=== PATIENT | female | born 1950 | race Caucasian/White ===

== ENCOUNTER 2017-08-28 20:13 | Emergency (ER) | payer OTHER ==
[~2017-08-28] VITALS: Ht 168.9 cm; Wt 109.9 kg
[~2017-08-28 20:13] MED LIST: ALBU1AER9 INH; ANSHCCR RE; ASPEC81 PO; ATOR-24 PO; CALC600T9 PO; CHOL1CAP57 PO; FRRG PO; GLC500 PO; LSN25 PO; METO25TA56 PO; MULTTAB58 PO; NCYSR50 PO; NTRGSL/4 UT; WARF1TAB PO
[2017-08-28 20:31] VITALS: TEMP 36.5; Ht 168.9 cm; Wt 109.9 kg
[2017-08-28] MEDS ORDERED: ONDANSETRON INJ 2 MG/ML 2 ML VIAL IV STA (20:52)
[2017-08-28] MEDS ORDERED: ACETAMINOPHEN 500 MG TAB PO STA (20:56)
[2017-08-28 21:22] LABS: BASO % 0.3 %; BASO ABS # 0.02 K/uL (0-0.2); EOS % 1.8 %; EOS ABS # 0.11 K/uL (0-0.5); HEMATOCRIT 41.4 % (37-47); HEMOGLOBIN 13.6 g/dL (12.0-16.0); IG# 0.01 K/uL (0.00-0.02); LYMPH % 39.2 %; LYMPH ABS # 2.43 K/uL (1.2-3.4); MEAN CELL VOLUME 86.4 fL (80-100); MEAN CORPUSCULAR HEMOGLOBIN 28.4 pg (25-34); MEAN CORPUSCULAR HGB CONC 32.9 g/dl (32-36); MONO % 8.9 %; MONO ABS # 0.55 K/uL (0.11-0.59); NEUT % 49.6 %; NEUT ABS # 3.08 K/uL (1.4-6.5); PLATELET COUNT 226 K/uL (130-400); RED CELL DISTRIBUTION WIDTH CV 13.9 % (11.5-14.5); RED CELL DISTRIBUTION WIDTH SD 43.7 fL (36.4-46.3)
--- NOTE | 2017-08-28 21:44 | EMERGENCY ROOM VISIT NOTE ---
History Report prepared by Yeny: Kong Paredes Under the Supervision of: Dr. Yonathan Chapman M.D. First contact with patient: 20:45 Chief Complaint: PELVIC PAIN Stated Complaint: PAIN LEFT SIDE History of Present Illness The patient is a 67 year old female who presents to the Emergency Room with complaints of persistent left pelvic pain that began three weeks ago. She rates her pain as a 10/10 in severity. She describes the pain as a shooting sensation. The patient states that she was sitting three weeks ago when she developed left pelvic pain that radiated into her left leg. She reports that her leg felt numb to the touch. The patient states that she saw a PA who thought it was due to inflammation. She reports she was prescribed medication, but states she did not take the medication because her insurance did not cover it. The patient states the pain was just as severe two days later, which caused her to call to make an appointment. She reports she was sent over to [facility] where she saw PA. Colon. The patient states PA. Colon thought the pain was coming form her back and she had a back and pelvic x-ray done. She states that she was prescribed Prednisone and Tramadol, which she reports helped dull the pain. The patient states she saw orthopedics who looked at the X-rays and noted there were no problems with the hip and back. She reports orthopedics thought she had a pinched nerve and placed her on Mobic. The patient states that the pain worsened today and her pain is not relieved with medication. She reports the pain is more forward than previously. She also reports an episode of diarrhea this morning and a lack of appetite for the last 3 weeks. She denies injury, activity to aggravate the area, a history of kidney stones, and urinary symptoms. Source of History: patient Onset: 3 weeks ago Position: other (left pelvis) Symptom Intensity: 10/10 Quality: other (shooting) Timing: other (persistent) Modifying Factors (Relieving): other (Tramadol, Mobic) Associated Symptoms: + back pain, + numbness, No abdominal pain, No urinary symptoms Note: Left leg pain. Review of Systems See HPI for pertinent positives & negatives. A total of 10 systems reviewed and were otherwise negative. Past Medical & Surgical Medical Problems: (1) Asthma (2) Diabetes (3) Heart attack (4) Heart disease (5) HTN (hypertension) Surgical Problems: (1) Stented coronary artery Family History Cancer Diabetes mellitus FH: heart disease Hypertension Social History Smoking Status: Never Smoker Smokeless Tobacco Use: No Alcohol Use: none Marital Status: Housing Status: lives with significant other Occupation Status: retired Current/Historical Medications Scheduled Aspirin Enteric Coated (Ecotrin Or Generic), 81 MG PO DAILY Atorvastatin (Lipitor), 40 MG PO DAILY Cholecalciferol (Vitamin D3), 1 TAB PO DAILY Lisinopril (Zestril), 2.5 MG PO DAILY Metformin Hcl (Glucophage), 1,000 MG PO BID Metoprolol Tartrate (Lopressor) (Lopressor), 12.5 MG PO BID Multiple Vitamin (Multivitamin), 1 TAB PO DAILY Nitroglycerin (Nitrostat), 0.4 MG UT PRN Scheduled PRN Fluticasone Propionate (Nasal) (Flonase Allergy Relief), 2 SPRAYS CARLOS A DAILY PRN for Nasal Congestion Tramadol (Ultram), 50 MG PO Q6 PRN for Pain [Proair Hfa 108], 2 PUFFS INH Q4 PRN for SOB/Wheezing Allergies Coded Allergies: Clindamycin (Verified Allergy, Severe, RASH, 08/28/17) Diphenhydramine (Verified Allergy, Severe, RASH/ERYTHEMA OVER UPPER BODY, 08/28/17) Rosuvastatin (Verified Allergy, Severe, LEG CRAMPS, 08/28/17) Clarithromycin (Verified Allergy, Intermediate, RASH, 08/28/17) Sulfa Drugs (Verified Allergy, Unknown, RASH, 08/28/17) Sulfamethoxazole (Verified Allergy, Unknown, RASH, 08/28/17) Trimethoprim (Verified Allergy, Unknown, RASH, 08/28/17) Physical Exam Vital Signs Date Time Temp Pulse Resp B/P (MAP) Pulse Ox O2 Delivery O2 Flow Rate FiO2 08/29/17 00:11 61 16 151/75 92 Room Air 08/28/17 22:58 62 18 158/74 94 Room Air 08/28/17 20:31 36.5 74 22 209/102 95 Room Air Physical Exam GENERAL: Patient is in no acute distress. HEENT: No acute trauma, normocephalic atraumatic, mucous membranes moist, no nasal congestion, no scleral icterus. NECK: No stridor, no adenopathy, no meningismus, trachea is midline. LUNGS: Clear to auscultation bilaterally, no wheeze, no rhonchi, breath sounds equal. HEART: Without murmurs gallops or rubs, regular rate and rhythm. ABDOMEN: Soft, tender in the left lower quadrant, bowel sounds positive, no hernias, no peritonitis, no rash seen. BACK: No change in the pain with palpation of the lower back or with movement. EXTREMITIES: No cyanosis or edema, full range of motion of all the joints without pain or difficulty, no signs for acute trauma, movement of the left hip causes no increase in pain. NEUROLOGIC: Oriented x 3, no acute motor or sensory deficits, no focal weakness. SKIN: No rash, no jaundice, no diaphoresis. Medical Decision & Procedures ER Provider Diagnostic Interpretation: Lumbar spine CT shows some mild spinal canal stenosis at L4-L5, there was moderate bilateral neuroforaminal stenosis at L4-L5. There is mild bilateral neuroforaminal stenosis at L5-S1. Abdominal and pelvis CT does not show any acute abnormality in the abdomen or pelvis. There is no bowel obstruction or inflammation. There is a tiny fat- containing umbilical hernia. Laboratory Results 08/28/17 21:10 Red Blood Count 4.79, Mean Corpuscular Volume 86.4, Mean Corpuscular Hemoglobin 28.4, Mean Corpuscular Hemoglobin Concent 32.9, Mean Platelet Volume 9.0, Neutrophils (%) (Auto) 49.6, Lymphocytes (%) (Auto) 39.2, Monocytes (%) (Auto) 8.9, Eosinophils (%) (Auto) 1.8, Basophils (%) (Auto) 0.3, Neutrophils # (Auto) 3.08, Lymphocytes # (Auto) 2.43, Monocytes # (Auto) 0.55, Eosinophils # (Auto) 0.11, Basophils # (Auto) 0.02 08/28/17 21:10 Test 08/28/17 21:10 08/28/17 22:45 White Blood Count 6.20 K/uL (4.8-10.8) Red Blood Count 4.79 M/uL (4.2-5.4) Hemoglobin 13.6 g/dL (12.0-16.0) Hematocrit 41.4 % (37-47) Mean Corpuscular Volume 86.4 fL (80-100) Mean Corpuscular Hemoglobin 28.4 pg (25-34) Mean Corpuscular Hemoglobin Concent 32.9 g/dl (32-36) Platelet Count 226 K/uL (130-400) Mean Platelet Volume 9.0 fL (7.4-10.4) Neutrophils (%) (Auto) 49.6 % Lymphocytes (%) (Auto) 39.2 % Monocytes (%) (Auto) 8.9 % Eosinophils (%) (Auto) 1.8 % Basophils (%) (Auto) 0.3 % Neutrophils # (Auto) 3.08 K/uL (1.4-6.5) Lymphocytes # (Auto) 2.43 K/uL (1.2-3.4) Monocytes # (Auto) 0.55 K/uL (0.11-0.59) Eosinophils # (Auto) 0.11 K/uL (0-0.5) Basophils # (Auto) 0.02 K/uL (0-0.2) RDW Standard Deviation 43.7 fL (36.4-46.3) RDW Coefficient of Variation 13.9 % (11.5-14.5) Immature Granulocyte % (Auto) 0.2 % Immature Granulocyte # (Auto) 0.01 K/uL (0.00-0.02) Anion Gap 8.0 mmol/L (3-11) Est Creatinine Clear Calc Drug Dose 86.4 ml/min Estimated GFR () 88.4 Estimated GFR (Non- 76.3 BUN/Creatinine Ratio 18.6 (10-20) Calcium Level 9.0 mg/dl (8.5-10.1) Total Bilirubin 0.5 mg/dl (0.2-1) Aspartate Amino Transf (AST/SGOT) 22 U/L (15-37) Alanine Aminotransferase (ALT/SGPT) 40 U/L (12-78) Alkaline Phosphatase 65 U/L (45-117) Total Protein 6.6 gm/dl (6.4-8.2) Albumin 3.4 gm/dl (3.4-5.0) Globulin 3.2 gm/dl (2.5-4.0) Albumin/Globulin Ratio 1.1 (0.9-2) Lipase 164 U/L (73-393) Urine Color YELLOW Urine Appearance CLEAR (CLEAR) Urine pH 5.0 (4.5-7.5) Urine Specific Inman 1.008 (1.000-1.030) Urine Protein NEG (NEG) Urine Glucose (UA) NEG (NEG) Urine Ketones NEG (NEG) Urine Occult Blood NEG (NEG) Urine Nitrite NEG (NEG) Urine Bilirubin NEG (NEG) Urine Urobilinogen NEG (NEG) Urine Leukocyte Esterase MODERATE (NEG) Urine WBC (Auto) 1-5 /hpf (0-5) Urine RBC (Auto) 0-4 /hpf (0-4) Urine Hyaline Casts (Auto) 0 /lpf (0-5) Urine Epithelial Cells (Auto) >30 /lpf (0-5) Urine Bacteria (Auto) NEG (NEG) Medications Administered Medications (Trade) Dose Ordered Sig/Karyn Route Start Time Stop Time Status Last Admin Dose Admin Ondansetron HCl (Zofran Inj) 4 mg NOW STAT IV 08/28/17 20:52 08/28/17 20:56 DC 08/28/17 21:28 4 MG Acetaminophen (Tylenol Tab) 1,000 mg NOW STAT PO 08/28/17 20:56 08/28/17 20:58 DC 08/28/17 21:28 1,000 MG ED Course 2053: The patient was evaluated in room B03B. A complete history and physical exam was performed. 2051: Ordered Zofran Injection 4 mg IV. 2055: Ordered Tylenol Tab 1000 mg PO. 2229: I reevaluated the patient and updated her on her results. She will give a urine sample. I spoke with the patient, we went over the CT findings. Patient was reassured. She is being discharged home with outpatient follow-up. She has an appointment in 2 days with her doctors. Medical Decision The patient is a 67 year old female who presents to the Emergency Room with complaints of persistent left pelvic pain that began three weeks ago. Differential diagnoses considered include nerve impingement, spinal stenosis, lumbar disc disease, diverticulitis, pelvic mass, UTI, renal colic, sciatica. There is no leukocytosis or concerning anemia. No significant electrolyte abnormality, kidney failure or hepatitis. There is no pancreatitis. Urinalysis does not show infection, contamination was seen. Abdominal and pelvis CT does not show any acute surgical process in the abdomen or pelvis. No mass in the pelvis, no diverticulitis. Lumbar spine CT shows some spinal stenosis in a few areas, nothing acutely surgical noted. The patient received oral Tylenol for pain. She received IV Zofran for nausea. The patient does not want anything further for pain. She will follow with her doctors. She will either try her Mobic or increase her aspirin dosing for pain control. She was told she could also use some Tylenol. Heat to the area was suggested. If worsening, she can return. The cause for her symptoms is unclear although likely musculoskeletal. Medication Reconcilliation Current Medication List: was personally reviewed by me Blood Pressure Screening Patient's blood pressure: Elevated blood pressure Blood pressure disposition: Referred to PCP Impression Primary Impression: Left flank pain Additional Impression: LLQ abdominal pain Scribe Attestation The scribe's documentation has been prepared under my direction and personally reviewed by me in its entirety. I confirm that the note above accurately reflects all work, treatment, procedures, and medical decision making performed by me. Departure Information Dispostion Home / Self-Care Referrals Fay Ferrera M.D. (PCP) Patient Instructions My [facility] Problem Qualifiers
[2017-08-28 21:48] LABS: ALBUMIN 3.4 gm/dl (3.4-5.0); CREATININE 0.8 mg/dl (0.60-1.20); POTASSIUM 3.7 mmol/L (3.5-5.1)
[2017-08-28 21:51] LABS: TOTAL PROTEIN 6.6 gm/dl (6.4-8.2)
[2017-08-28] MEDS ORDERED: TRAM-10 PO (22:26)
[2017-08-28] MEDS ORDERED: METF-384 PO (22:26)
[2017-08-28] MEDS ORDERED: FLUT0.15 NAE (22:26)
[2017-08-28] MEDS ORDERED: ASPI-319 PO (22:26)
[2017-08-28] MEDS ORDERED: PROAIR HFA 108 INH (22:26)
[2017-08-28] MEDS ORDERED: LISI-789 PO (22:26)
[2017-08-28] MEDS ORDERED: CHOL20007 PO (22:38)
[2017-08-28] MEDS ORDERED: OPTIRAY 320 IV PRN (23:30)
[2017-08-29 01:05] VITALS: BP 151/84; PULSE 61; O2SAT 92
--- NOTE | 2017-08-29 07:16 | DIAGNOSTIC IMAGING REPORT ---
ABDOMEN AND PELVIS CT WITH IV AND ORAL CONTRAST CT DOSE: HISTORY: Left flank pain. Generalized abdominal pain. TECHNIQUE: Multiaxial CT images of the abdomen and pelvis were performed following the use of intravenous and oral contrast. A dose lowering technique was utilized adhering to the principles of ALARA. COMPARISON STUDY: None. FINDINGS: The lung bases are clear. No pneumoperitoneum. No pneumatosis. No suspicious lytic or blastic osseous lesions. Hepatic steatosis. The gallbladder, spleen, adrenal glands, pancreas, and kidneys are unremarkable. No hydronephrosis. No retroperitoneal lymphadenopathy. The uterus, adnexa, and bladder are unremarkable. Mild pelvic floor collapse. No bowel wall thickening or obstruction. IMPRESSION: 1. No bowel wall thickening or obstruction. 2. Hepatic steatosis. Electronically signed by: Jeremy Ferrer M.D. 08/29/2017 7:14 AM Dictated Date/Time: 08/29/2017 7:08 AM
--- NOTE | 2017-08-29 07:56 | DIAGNOSTIC IMAGING REPORT ---
CT SCAN OF THE LUMBAR SPINE WITHOUT IV CONTRAST CLINICAL HISTORY: Left flank pain. Left lower extremity numbness. COMPARISON STUDY: No priors. TECHNIQUE: CT scan of the lumbar spine is performed from the lower thoracic spine to the sacrum. Images were reviewed in the axial, sagittal, and coronal planes. IV contrast was not administered specifically for this examination. There is IV contrast present from the concurrently performed abdominal CT. A dose lowering technique was utilized adhering to the principles of ALARA. CT DOSE: 1364.55 mGy.cm FINDINGS: The skeletal structures are osteopenic. There is no evidence of fracture or malalignment involving the lumbar spine. Vertebral body height is maintained. There is 6 mm of anterolisthesis at L4-L5. Minimal retrolisthesis is seen at L2-L3. The transverse and spinous processes are intact. There is no evidence of spondylolysis. No lytic or blastic lesion is seen. Tiny anterior osteophytes are seen throughout. Mild facet arthropathy is noted in the lower lumbar spine. The disc spaces appear preserved. There is no evidence of large disc herniation. Minimal posterior disc bulge is seen at L2-L3, L3-L4, and L4-L5. The visualized sacrum and bony pelvis appear intact. The paraspinous soft tissues are normal in appearance. The partially imaged retroperitoneal structures are grossly unremarkable. There is mild atherosclerotic calcification of the abdominal aorta. IMPRESSION: 1. No acute bony abnormality is identified involving the lumbar spine. 2. Osteopenia and mild spondylotic change as above. Dictated: 08/29/2017 7:05 AM Transcribed: 08/29/2017 7:55 AM Reed Electronically signed by: Yonathan Paris M.D. 08/29/2017 7:59 AM Dictated Date/Time: 08/29/2017 7:05 AM
[2017-08-30] MEDS ORDERED: ALBU18002 INH (23:42)
[2017-08-30] MEDS ORDERED: DICL75TA2 PO (23:42)
== END 2017-08-29 01:06 | disposition home or self-care (01) ==
LOC: C.EDB 20:13
DX: R10.32 Left lower quadrant pain (principal); J45.909 Unspecified asthma, uncomplicated; E11.9 Type 2 diabetes mellitus without complications; I11.9 Hypertensive heart disease without heart failure; Z79.82 Long term (current) use of aspirin; Z79.899 Other long term (current) drug therapy; Z88.1 Allergy status to other antibiotic agents; Z88.2 Allergy status to sulfonamides; Z88.8 Allergy status to other drugs, medicaments and biological substances

== ENCOUNTER 2017-08-30 22:37 | Emergency (ER) | payer OTHER ==
[~2017-08-30] VITALS: Ht 167.6 cm; Wt 109.0 kg
[~2017-08-30 22:37] MED LIST changes: -ALBU1AER9 INH; -ANSHCCR RE; -ASPEC81 PO; +ASPI-319 PO; -CALC600T9 PO; -CHOL1CAP57 PO; +CHOL20007 PO; +FLUT0.15 NAE; -FRRG PO; -GLC500 PO; +LISI-789 PO; -LSN25 PO; +METF-384 PO; -NCYSR50 PO; +PROAIR HFA 108 INH; +TRAM-10 PO; -WARF1TAB PO
[2017-08-30 22:45] VITALS: TEMP 37
[2017-08-30] MEDS ORDERED: KETOROLAC TROMETHAMINE 30 MG/ML VIAL IV STA (23:20)
[2017-08-30] MEDS ORDERED: HYDROmorphone INJ 2 MG/ML SYR/VIAL IV STA (23:20)
--- NOTE | 2017-08-30 23:38 | EMERGENCY ROOM VISIT NOTE ---
History Report prepared by Yeny: Rommel Brice Under the Supervision of: Dr. Demetrice Moon D.O. First contact with patient: 22:59 Chief Complaint: BACK PAIN Stated Complaint: HIP PAIN History of Present Illness The patient is a 67 year old female who presents to the Emergency Room with complaints of worsening back pain since yesterday. She notes that she developed back pain with spasms to her middle back three weeks ago. She states that she has been getting sharp, stabbing pain in her left groin. She also reports that she developed numbness over her left leg three weeks ago. She notes that she was seen by her PCP who prescribed her Tramadol and Prednisone, for which she took for about five days and states that it did help her for about one week. She states the pain returned and she was seen in the ED for similar symptoms. She was prescribed Tylenol and Zofran at that time. She was seen again at her PCPs this morning because the pain had worsened since yesterday. She reports that she took a Tramadol at 2000 today and a Voltaren, which was also recently prescribed to her today. She describes the pain her left groin and left leg as though someone is sticking her with knives. She states it feels as though her legs are going to give out. She states that she used to be able to lay flat with relief, though now she is finding it more difficult to get comfortable. She notes the pain is worsened with movement. She denies any pain to the back of her knee. She is expected to have an MRI in two days. She denies any abdominal pain. She notes her stools have been loose. She notes intermittent chest pain that has been coming and going all day today. She has a history of DE. Source of History: patient Onset: since yesterday Position: back Quality: sharp, stabbing Timing: worsening Modifying Factors (Worsening): movement Associated Symptoms: + chest pain, + numbness (left leg), No abdominal pain Note: She notes left leg pain and left groin pain. Review of Systems See HPI for pertinent positives & negatives. A total of 10 systems reviewed and were otherwise negative. Past Medical & Surgical Medical Problems: (1) Asthma (2) Diabetes (3) Heart attack (4) Heart disease (5) HTN (hypertension) (6) Myocardial infarction (7) Right Knee DJD (8) Right Knee DJD Surgical Problems: (1) Stented coronary artery Family History Cancer Diabetes mellitus FH: heart disease Hypertension Social History Smoking Status: Never Smoker Smokeless Tobacco Use: No Alcohol Use: none Drug Use: none Marital Status: Housing Status: lives with significant other Occupation Status: retired Current/Historical Medications Scheduled Aspirin Enteric Coated (Ecotrin Or Generic), 81 MG PO DAILY Atorvastatin (Lipitor), 40 MG PO DAILY Cholecalciferol (Vitamin D3), 1 TAB PO DAILY Diclofenac Sodium (Voltaren), 75 MG PO BID Lisinopril (Zestril), 2.5 MG PO DAILY Metformin Hcl (Glucophage), 1,000 MG PO BID Metoprolol Tartrate (Lopressor) (Lopressor), 12.5 MG PO BID Multiple Vitamin (Multivitamin), 1 TAB PO DAILY Nitroglycerin (Nitrostat), 0.4 MG UT PRN Scheduled PRN Albuterol Sulfate (Proair Respiclick), 2 PUFFS INH Q4H PRN for SOB/Wheezing Fluticasone Propionate (Nasal) (Flonase Allergy Relief), 2 SPRAYS CARLOS A DAILY PRN for Nasal Congestion Oxycodone/Acetaminophen 5MG/325MG (Percocet 5MG/325MG), 1-2 TABLETS PO Q4H PRN for Pain Tramadol (Ultram), 50 MG PO Q6 PRN for Pain Allergies Coded Allergies: Clindamycin (Verified Allergy, Severe, RASH, 08/30/17) Diphenhydramine (Verified Allergy, Severe, RASH/ERYTHEMA OVER UPPER BODY, 08/30/17) Rosuvastatin (Verified Allergy, Severe, LEG CRAMPS, 08/30/17) Clarithromycin (Verified Allergy, Intermediate, RASH, 08/30/17) Sulfa Drugs (Verified Allergy, Intermediate, RASH, 08/30/17) Sulfamethoxazole (Verified Allergy, Intermediate, RASH, 08/30/17) Trimethoprim (Verified Allergy, Intermediate, RASH, 08/30/17) Physical Exam Vital Signs Date Time Temp Pulse Resp B/P (MAP) Pulse Ox O2 Delivery O2 Flow Rate FiO2 08/31/17 01:22 64 18 155/90 92 08/31/17 00:31 65 18 160/95 93 Nasal Cannula 2.0 08/30/17 22:45 60 08/30/17 22:45 37.0 60 15 181/115 95 Room Air Physical Exam GENERAL: uncomfortable-appearing with spasms of left groin and left thigh HEENT: Head - normocephalic and atraumatic Pupils are equal, round, and reactive to light. Extraocular eye muscles are intact, and sclera are anicteric. Nose - moist nasal mucosa without discharge. Mouth - moist buccal mucosa. Oropharynx is nonerythematous and there is no tonsillar exudate or edema noted. Neck: Supple; no JVD, nuchal rigidity, cervical lymphadenopathy. Heart: Regular rate and rhythm. There is a normal S1 and S2 with no murmurs, clicks, or gallops appreciated. Lungs: Clear to auscultation bilaterally with no wheezes, rales, or rhonchi. Abdomen: Soft, completely nontender, nondistended, with good bowel sounds. There are no palpable pulsatile masses or hepatosplenomegaly. There is no guarding, rigidity, or rebound noted. Extremities: No evidence of cyanosis, clubbing, or edema. There are easily palpable peripheral pulses. The patient has extreme pain with initiation of flexion at the hip. The pain seems to be concentrated in the left groin and left anterior thigh. Skin: warm and dry with good turgor and no rashes. Medical Decision & Procedures Laboratory Results Test 08/30/17 23:40 Troponin I < 0.015 ng/ml (0-0.045) Laboratory results per my review. Medications Administered Medications (Trade) Dose Ordered Sig/Karyn Route Start Time Stop Time Status Last Admin Dose Admin Hydromorphone HCl (Dilaudid Inj) 2 mg NOW STAT IV 08/30/17 23:20 08/30/17 23:22 DC 08/30/17 23:44 2 MG Ketorolac Tromethamine (Toradol Inj) 30 mg NOW STAT IV 08/30/17 23:20 08/30/17 23:22 DC 08/30/17 23:44 30 MG Procedure 2320: Ordered Toradol 30 mg IV and Dilaudid 2 mg IV 0100: Ordered Percocet 1 homepack PO ECG Per My Interpretation Indication: back/shoulder pain (back pain) Rate (beats per minute): 63 Rhythm: normal sinus Findings: nonspecific-ST abn, no acute ischemic change, no ectopy ED Course 2311: Past medical records reviewed. The patient was evaluated in room B11B. A complete history and physical exam was performed. IV lock was established. 2320: Ordered Toradol 30 mg IV and Dilaudid 2 mg IV 0005: I reassessed the patient at this time. She is feeling much better and is pain free. 0049: I reassessed the patient at this time. I recommended discontinuing the Tramadol and Voltaren. She will be placed on Percocet. I suggested that she start a stool softener with this medication. I answered all pertaining questions that she had. She expressed understanding and verbalized agreement. The patient will be discharged home. 0100: Ordered Percocet 1 homepack PO Medical Decision The patient is a 67 year old female who presents to the ED with back pain. Differential diagnosis includes sciatica, lumbar radiculopathy, lumbar nerve root compression, and bursitis of left hip. Lab results showed: Troponin was negative. This is a 67-year-old female patient presents to the emergency department with worsening left groin pain, left thigh pain, and low back spasms. Her symptoms have been worsening over the past 3 weeks. She had initially been prescribed a course of prednisone which seemed to initially help the symptoms but now they have drastically worsened. She saw orthopedics yesterday and they have her scheduled for an MRI of the lumbar spine in 48 hours. The patient was given a prescription for Voltaren. She has only taking 1 tab and states that the pain is unbearable. The patient is comfortable at the time of discharge. She will take Percocet for the pain along with a stool softener. I have asked her to return to the emergency department if symptoms worsen. Otherwise, she will keep her appointment for MRI on Sunday. [place] Drug Monitoring Program Search Results: no issues identified Medication Reconcilliation Current Medication List: was personally reviewed by me Blood Pressure Screening Patient's blood pressure: Elevated blood pressure Blood pressure disposition: Elevated BP felt to be situational Impression Primary Impression: Lumbar radiculopathy, acute Scribe Attestation The scribe's documentation has been prepared under my direction and personally reviewed by me in its entirety. I confirm that the note above accurately reflects all work, treatment, procedures, and medical decision making performed by me. Departure Information Dispostion Home / Self-Care Prescriptions Oxycodone/Acetaminophen 5MG/325MG (PERCOCET 5MG/325MG) Tab 1-2 TABLETS PO Q4H Y for Pain, #20 TAB Prov: Demetrice Moon D.O. 08/31/17 Referrals Crow Hooper M.D. (PCP) Forms HOME CARE DOCUMENTATION FORM, IMPORTANT VISIT INFORMATION Patient Instructions My [facility] Additional Instructions Stop the tramadol and voltaren. Take percocet 1-2 tabs. every 4 hours for pain. Take a stool softner when taking this. Avoid driving while on this med. Limit activities until MRI and follow up with Ortho.
[2017-08-30] MEDS ORDERED: ALBU18002 INH (23:42)
[2017-08-30] MEDS ORDERED: DICL75TA2 PO (23:42)
[2017-08-31 00:09] VITALS: Ht 167.6 cm; Wt 109.0 kg
[2017-08-31] MEDS ORDERED: PERCOCET HOME PACK PO ONE (01:00)
[2017-08-31] MEDS ORDERED: OXYC-57 PO (01:11)
[2017-08-31 01:22] VITALS: BP 155/90; PULSE 64; O2SAT 92
== END 2017-08-31 01:23 | disposition home or self-care (01) ==
LOC: EDBD 22:37 → C.EDB 22:39
DX: M54.16 Radiculopathy, lumbar region (principal); J45.909 Unspecified asthma, uncomplicated; E11.9 Type 2 diabetes mellitus without complications; I25.2 Old myocardial infarction; I10 Essential (primary) hypertension; Z83.3 Family history of diabetes mellitus; Z82.49 Family history of ischemic heart disease and other diseases of the circulatory system; Z80.9 Family history of malignant neoplasm, unspecified; Z79.82 Long term (current) use of aspirin; Z79.899 Other long term (current) drug therapy; Z88.1 Allergy status to other antibiotic agents; Z88.2 Allergy status to sulfonamides; Z88.8 Allergy status to other drugs, medicaments and biological substances

== ENCOUNTER → 2017-09-18 | Outpatient (CLI) | payer OTHER ==
[~2017-09-18] MED LIST changes: +ALBU18002 INH; +DICL75TA2 PO; +OXYC-57 PO; +PRED-301 PO; -PROAIR HFA 108 INH
--- NOTE | 2017-09-18 11:08 | DIAGNOSTIC IMAGING REPORT ---
L FEMUR 2 VIEWS ROUTINE CLINICAL HISTORY: 67 years-old Female presenting with LEFT THIGH PAIN. TECHNIQUE: Frontal and lateral views of the left femur were obtained. COMPARISON: None. FINDINGS: Total left knee arthroplasty evident. No hardware complication is evident. Radiolucent patellar resurfacing may be present. Left hip joint congruent. No acute fracture or malalignment. No advanced degenerative change. No radiographic soft tissue abnormality. IMPRESSION: 1. No acute osseous injury. 2. Total left knee arthroplasty without hardware complication. Electronically signed by: Low Mason M.D. 09/18/2017 11:06 AM Dictated Date/Time: 09/18/2017 11:05 AM
--- NOTE | 2017-09-18 11:44 | DIAGNOSTIC IMAGING REPORT ---
L VENOUS DOPP LOWER EXT UNILAT CLINICAL HISTORY: 67 years-old Female presenting with LT THIGH PAIN R/O DVT. TECHNIQUE: Real-time grayscale and color and spectral Doppler ultrasound imaging of the veins of the left lower extremity was performed. Compression and augmentation were also utilized. COMPARISON: None. FINDINGS: Left: Common femoral vein: Patent. Greater saphenous vein: Patent. Deep femoral vein: Patent. Femoral vein: Patent. Popliteal vein: Patent. Calf veins: Patent. Other: None. IMPRESSION: No evidence of deep venous thrombosis. Electronically signed by: Low Mason M.D. 09/18/2017 11:43 AM Dictated Date/Time: 09/18/2017 11:42 AM
== END | disposition home or self-care (01) ==
LOC: C.RADBC 10:02
PROVIDERS: ATTEND Physician Assistant Medical
DX: M79.652 Pain in left thigh (principal); Z96.652 Presence of left artificial knee joint